=== PATIENT | female | born 1995 | race American Indian/Alaskan Native ===

== ENCOUNTER 2018-07-26 12:05 | Emergency (ER) | payer BC ==
[2018-07-26 13:50] LABS: Hematocrit 41.5 % (30.3-42.9); Hemoglobin 14.1 gm/dl (10.1-14.3); Mean Corpuscular HGB Conc 34 % (30-34); Mean Corpuscular Hemoglobin 33 pg (28-32); Mean Corpuscular Volume 97 fl (79-97); Platelet Count 205 K/mm3 (140-440); Red Blood Count 4.28 M/mm3 (3.65-5.03); Red Cell Distribution Width 13.7 % (13.2-15.2)
--- NOTE | 2018-07-26 14:04 | Emergency Department Report ---
ED Female HPI - General Chief complaint: Urogenital-Female Stated complaint: PELVIC PAIN, VOMITING X2 Time Seen by Provider: 07/26/18 13:13 Source: patient Mode of arrival: Ambulatory Limitations: No Limitations - History of Present Illness Initial comments: This is a 22-year-old female nontoxic, well nourished in appearance, no acute signs of distress presents to the ED with c/o of acute on chronic intertmieent vaginal bleeding and pelvic pain x10 years. Patient stated that every time she develops menstrual cycle she gets these symptoms. Patient denies any abdominal pain. Patient stated has seen an BR[facility] EXAMINER years ago and was started on control but mother refused. Patient denies any vaginal discharge or foul odor. Patient denies any nausea, vomiting, chest pain, shortness of breathe, fever, chills, headache, stiff neck, numbness, tingling. Patient denies any urinary symptoms. Patient denies any allergies or PMH. MD Complaint: vaginal bleeding, pelvic pain Radiation: non-radiating Severity: mild Severity scale (0 -10): 3 Quality: cramping, aching Consistency: intermittent Improves with: none Worsens with: none Are you Now?: No Associated Symptoms: vaginal bleeding. denies: vaginal discharge, abdominal pain, nausea/vomiting, fever/chills, headaches, loss of appetite, dysuria, hematuria, rash, seizure, shortness of breath, syncope, weakness - Related Data Sexually active: No Previous Rx's Medication Instructions Recorded Last Taken Type Ibuprofen [Motrin] 600 mg PO Q8H PRN #30 tablet 07/26/18 Unknown Rx Sulfamethoxazole/Trimethoprim 1 each PO BID #14 tablet 07/26/18 Unknown Rx [Bactrim DS TAB] Allergies Allergy/AdvReac Type Severity Reaction Status Date / Time No Known Allergies Allergy Unverified 07/26/18 12:22 ED Review of Systems ROS: Stated complaint: PELVIC PAIN, VOMITING X2 Other details as noted in HPI Constitutional: denies: chills, fever Eyes: denies: eye pain, eye discharge, vision change ENT: denies: ear pain, throat pain Respiratory: denies: cough, shortness of breath, wheezing Cardiovascular: denies: chest pain, palpitations Endocrine: no symptoms reported Gastrointestinal: denies: abdominal pain, nausea, diarrhea Genitourinary: abnormal menses. denies: urgency, dysuria, discharge Musculoskeletal: denies: back pain, joint swelling, arthralgia Skin: denies: rash, lesions Neurological: denies: headache, weakness, paresthesias Psychiatric: denies: anxiety, depression Hematological/Lymphatic: denies: easy bleeding, easy bruising ED Past Medical Hx - Past Medical History Additional medical history: severe pelvic cramps with menses - Social History Smoking Status: Never Smoker Substance Use Type: None - Medications Home Medications: Home Medications Medication Instructions Recorded Confirmed Last Taken Type Ibuprofen [Motrin] 600 mg PO Q8H PRN #30 tablet 07/26/18 Unknown Rx Sulfamethoxazole/Trimethoprim 1 each PO BID #14 tablet 07/26/18 Unknown Rx [Bactrim DS TAB] ED Physical Exam - General Limitations: No Limitations General appearance: alert, in no apparent distress - Head Head exam: Present: atraumatic, normocephalic - Eye Eye exam: Present: normal appearance - ENT ENT exam: Present: normal exam, mucous membranes moist - Neck Neck exam: Present: normal inspection, full ROM. Absent: tenderness, meningismus, lymphadenopathy - Respiratory Respiratory exam: Present: normal lung sounds bilaterally. Absent: respiratory distress, wheezes, rales, rhonchi, stridor, chest wall tenderness, accessory muscle use, decreased breath sounds, prolonged expiratory - Cardiovascular Cardiovascular Exam: Present: regular rate, normal rhythm, normal heart sounds. Absent: irregular rhythm, systolic murmur, diastolic murmur, rubs, gallop - GI/Abdominal GI/Abdominal exam: Present: soft, tenderness (pelvic diffuse), normal bowel sounds. Absent: distended, guarding, rebound, rigid, diminished bowel sounds - Expanded GI/Abdominal Exam Expanded GI/Abdominal exam: Absent: psoas sign, obturator sign, Faust's sign, Rovsing's sign, tenderness at Mcburney's Point, ascites - Rectal Rectal exam: Present: deferred - Extremities Exam Extremities exam: Present: normal inspection, full ROM, normal capillary refill - Back Exam Back exam: Present: normal inspection, full ROM. Absent: tenderness, CVA tenderness (R), CVA tenderness (L), muscle spasm, paraspinal tenderness, rash noted - Neurological Exam Neurological exam: Present: alert, oriented X3, normal gait - Psychiatric Psychiatric exam: Present: normal affect, normal mood - Skin Skin exam: Present: warm, dry, intact, normal color. Absent: rash ED Course Vital Signs 07/26/18 07/26/18 07/26/18 12:18 14:25 14:50 Temperature 99 F 98.7 F Pulse Rate 100 H 51 L Respiratory 18 18 18 Rate Blood Pressure 116/73 Blood Pressure 102/70 [Right] O2 Sat by Pulse 64 L 100 Oximetry 07/26/18 15:50 Temperature Pulse Rate Respiratory 18 Rate Blood Pressure Blood Pressure [Right] O2 Sat by Pulse Oximetry - Reevaluation(s) Reevaluation #1: 07/26/18 14:07 Patient is speaking in full sentences with no signs of distress noted. ED Medical Decision Making - Lab Data Result diagrams: 07/26/18 13:37 - Medical Decision Making This is a 22-year-old female presents with dysmenorrhea and UTI. Patient is stable and was examined by me. Normal abdominal exam. US OB obtained and dictated by the radiologist. Ua obtained. Negative test. Patient notified of the US report with no questions noted by the patient. Labs within normal limits. Patient was referred to Follow-up with a [facility] PATHOLOG[facility] in 3-5 days or if symptoms worsen and continue return to emergency room as soon as possible. At time of discharge, the patient does not seem toxic or ill in appearance. No acute signs of distress noted. Patient agrees to discharge treatment plan of care. No further questions noted by the patient. Critical care attestation.: If time is entered above; I have spent that time in minutes in the direct care of this critically ill patient, excluding procedure time. ED Disposition Clinical Impression: Dysmenorrhea UTI (urinary tract infection) Qualifiers: Urinary tract infection type: site unspecified Hematuria presence: without hematuria Qualified Code(s): N39.0 - Urinary tract infection, site not specified Disposition: DC-01 TO HOME OR SELFCARE Is pt being admited?: No Does the pt Need Aspirin: No Condition: Stable Instructions: Dysmenorrhea (ED), Urinary Tract Infection in Women (ED) Additional Instructions: Follow-up with a FOREST PATHOLOGIST in 3-5 days or if symptoms worsen and continue return to emergency room as soon as possible. Prescriptions: Ibuprofen [Motrin] 600 mg PO Q8H PRN #30 tablet PRN Reason: Pain Sulfamethoxazole/Trimethoprim [Bactrim DS TAB] 1 each PO BID #14 tablet Referrals: PRIMARY CARE, [Primary Care Provider] - 3-5 Days JAMI BELLE MD [Staff Physician] - 3-5 Days [facility] [Provider Group] - 3-5 Days Forms: Work/School Release Form(ED)
[2018-07-26 14:21] LABS: Bilirubin,Urine NEG (Negative); Blood,Urine LG (Negative); Color,Urine Amber (Yellow); Mucus,Urine 3+ /HPF
[2018-07-26 14:23] LABS: RBC,Urine > 182.0 /HPF (0.0-6.0)
[2018-07-26 14:30] VITALS: BP 102/70
[2018-07-26 14:40] LABS: Band Neutrophils # (Manual) 0.1 K/mm3; Basophils % (Manual) 0 % (0.0-1.8); Total Cells Counted 100
[2018-07-26 14:42] LABS: Anisocytosis Few; Poikilocytosis Few
[2018-07-26 14:43] LABS: Ovalocytes Rare; Platelet Estimate Consistent w Auto; Tear Drop Cells Rare
[2018-07-26] MEDS ORDERED: TYLENOL #3 PO ONE (14:45)
--- NOTE | 2018-07-26 15:56 | Ultrasound Report ---
FINAL REPORT EXAM: US PELVIS DUPLEX DOPPLER COMP HISTORY: pelvic pain COMPARISON: None. TECHNIQUE: Transabdominal imaging of the pelvis was performed. FINDINGS: The uterus measures 7.5 x 3.7 x 4.7 centimeters and is anteverted. There is normal echogenicity of the uterine myometrium. The endometrium measures 10.4 millimeters in thickness. There is a focal thickening in the lower endometrium that measures approximately 1.1 x 0.6 x 0.8 centimeters. The right ovary measures 3.6 x 1.9 x 2.9 centimeters and is normal in morphology. There is normal arterial and venous flow to the right ovary. The left ovary measures 3.3 x 2.6 x 2.6 centimeters. There is a mildly complex cystic structure with low level internal echoes and peripheral vascularity in the left ovary that measures approximately 1.6 x 1.1 x 1.2 centimeters. There is no free fluid in the pelvis. IMPRESSION: Focal thickening of the lower endometrium measuring approximately 1.1 x 0.6 x 0.8 centimeters. Differential diagnosis includes blood products,, a polyp, or a submucosal fibroid. Recommend correlation with menstrual cycle. Consider further evaluation with sonohysterogram. Mildly complex cystic structure within the left ovary that likely represents a corpus luteum cyst. Differential diagnosis includes endometrioma. Recommend repeat imaging in 6-12 weeks after the end of the patient's menses to evaluate for resolution.
--- NOTE | 2018-07-26 15:57 | Ultrasound Report ---
FINAL REPORT EXAM: US TRANSVAGINAL HISTORY: pelvic pain COMPARISON: None TECHNIQUE: Transvaginal imaging of the pelvis was performed FINDINGS: The uterus measures 7.5 x 3.7 x 4.7 centimeters and is anteverted. There is normal echogenicity of the uterine myometrium. The endometrium measures 10.4 millimeters in thickness. There is a focal thickening in the lower endometrium that measures approximately 1.1 x 0.6 x 0.8 centimeters. The right ovary measures 3.6 x 1.9 x 2.9 centimeters and is normal in morphology. There is normal arterial and venous flow to the right ovary. The left ovary measures 3.3 x 2.6 x 2.6 centimeters. There is a mildly complex cystic structure with low level internal echoes and peripheral vascularity in the left ovary that measures approximately 1.6 x 1.1 x 1.2 centimeters. There is no free fluid in the pelvis. IMPRESSION: Focal thickening of the lower endometrium measuring approximately 1.1 x 0.6 x 0.8 centimeters. Differential diagnosis includes blood products,, a polyp, or a submucosal fibroid. Recommend correlation with menstrual cycle. Consider further evaluation with sonohysterogram. Mildly complex cystic structure within the left ovary that likely represents a corpus luteum cyst. Differential diagnosis includes endometrioma. Recommend repeat imaging in 6-12 weeks after the end of the patient's menses to evaluate for resolution.
== END 2018-07-26 16:50 | disposition home or self-care (01) ==
LOC: ED 12:05
DX: N94.6 Dysmenorrhea, unspecified (principal); N39.0 Urinary tract infection, site not specified
CPT/HCPCS: 36415; 76830; 81001; 84703; 85007; 85025; 87086; 93975